=== PATIENT | male | born 1950 | race Caucasian/White ===

== ENCOUNTER 2018-01-13 11:16 | Emergency (ER) | payer MEDICARE, OTHER ==
[2018-01-13] MEDS ORDERED: Sodium Chloride 0.9% 1,000 ML IV ONE (11:57)
[2018-01-13] MEDS ORDERED: HYDROmorphone 2 MG/ML SDV IVPUSH ONE (11:58)
[2018-01-13] MEDS ORDERED: Ondansetron 4 MG/2 ML SDV IVPUSH ONE (11:59)
[2018-01-13] MEDS ORDERED: Iopamidol 755 Mg/ML 75 ML Bottle IV ONE (12:09)
[2018-01-13] MEDS ORDERED: Sodium Chloride 0.9% 10 ML Syringe FLUSH PRN (12:20)
--- NOTE | 2018-01-13 14:14 | CT ---
INDICATION: Sudden onset of severe right lower quadrant abdominal pain without vomiting or diarrhea. CT ABDOMEN AND CT PELVIS WITH CONTRAST: Spiral 2.5 mm axial sections were obtained through the abdomen and pelvis with IV contrast only (75 mL Isovue 370 at 2 mL per second) with sagittal and coronal reconstructions 01/13/2018 - no comparisons were available. Total exam DLP = 552.53 mGy-cm. An active infiltrate or effusion was not identified. The heart appeared normal in size and shape. No gallstones were demonstrated. No significant appearing lesions are noted in the liver, which was not enlarged and appeared normal in density. The spleen and pancreas appear to be normal. The common bile duct was normal in caliber in the head of the pancreas. The adrenal glands appear normal. A tiny cyst is suggested in the anterior cortex - medulla of the lower middle pole anteriorly of the right kidney. On the left, a similar tiny lesion is seen, compatible with a benign cyst in the anterior cortex of the mid pole of the left kidney. In the upper pole of the left kidney, there is a small probable benign cyst measuring approximately 17 mm and an additional larger cyst splaying the renal parenchyma posteriorly, measuring approximately 46 mm. This also has a benign appearance. Three very tiny benign cysts are noted at the lower pole of the left kidney. No evidence of obstructive uropathy was seen on the left. No definite renal calculi were seen. It is difficult to exclude calculi, however, intrarenal on the right, and compared with the left, there is pyelocaliectasis and ureterectasis down to the point where the bilateral total hip arthroplasties produce total annihilation of detail due to hard beam artifact. The possibility of a calculus at the ureterovesical junction cannot be excluded, therefore. The urinary bladder is not adequately visualized, due to the hard beam artifact. The appendix appeared normal and is visualized on axial images #122 through # 126 and coronal images #45 through #55. Evidence of hernia operation for ventral hernia is noted. No recurrent hernia is seen. Fluid filled stomach is noted. This should be correlated clinically. No evidence of a definite bowel obstruction was seen. No free air was identified. Dextroconvex rotoscoliosis of the lumbar spine is noted with dextroconcave scoliosis of the thoracolumbar spine. No additional mass lesions, organomegaly, or free fluid collections were identified in the abdomen or pelvis. IMPRESSION: 1. No evidence of appendicitis. 2. Findings suggest renal calcinosis on the right and obstructive uropathy on the right; however, the distalmost ureter leading to the urinary bladder is not visualized due to rather marked hard beam artifact due to bilateral total hip arthroplasties, making it impossible to exclude ureterovesical junction calculus. This should be correlated clinically, therefore. 3. Scoliosis. 4. Post hernia operation for ventral hernia. 5. Degenerative disk disease lumbar spine. 6. Cystic changes in the kidneys, very minimal on the right, with the largest cyst approximately 46 mm upper pole left kidney, splaying the renal parenchyma. Report was called to Dr. Lemons at 1254 hours on 01/13/2018. [facility]
--- NOTE | 2018-01-18 15:25 | ER ---
DATE SEEN: 01/13/2018 CHIEF COMPLAINT: Abdominal pain, 1-1/2 hours after eating ham and eggs at home. Onset 1030 this morning. HISTORY OF PRESENT ILLNESS: The pain is described as sharp, 10/10, right lower quadrant discomfort. It is new, it has not been present before. No history of vomiting, diarrhea, fever, back pain, or constipation. He takes MiraLax daily and has had a previous history of kidney stones in the past, is not sure if this is a kidney stone pain or not. PAST MEDICAL HISTORY: Hypertension, erectile dysfunction, prostatism, obstruction of the prostate status post previous surgery, right total hip arthroplasties, benign cysts in his kidneys, bilateral total hip arthroplasties, left knee total arthroplasty 05/2018 with resultant stiffness in his legs, previous ventral herniorrhaphy. ALLERGIES: None. REVIEW OF SYSTEMS: HEENT: Negative. CARDIORESPIRATORY: No chest pain. No shortness of breath. MUSCULOSKELETAL: Sense of low back discomfort, stable but resultant discomfort and total left knee and hip arthroplasties with moderately good locomotion. SOCIAL HISTORY: more recently with myocardial infarction. Three daughters, alive and well. The patient smokes a pipe, but does not drink alcohol. Has dyslipidemia. Otherwise, H and P negative except for noted above. Decreased urine output and nocturia noted. Frequent voidings. No prostate surgery. PHYSICAL EXAMINATION: VITAL SIGNS: Blood pressure 157/67, heart rate 64, respirations 20, oxygen saturation 100% on room air, temperature 36.8 degrees Centigrade. His blood pressure did come down on several subsequent measurements, 125/122 on repeat systolic measurements. The diastolic has not changed. GENERAL: Pleasant man, in moderate distress. Presently pain is 6 to 8 out of 10 in intensity. He is afebrile. HEENT: PERRLA intact. Pharynx without abnormality. NECK: Supple. No bruits in neck. LUNGS: Clear without rales, rhonchi, or wheezes. HEART: S1, S2. No irregular rate and rhythm. ABDOMEN: Soft. Mild right flank pain with percussion. LOWER EXTREMITIES: Hips without pain. Good mobility. He has decreased mobility in the left knee. No pedal edema. Extremities are without pain. Deep tendon reflexes hypoactive in upper and lower extremities. NEUROLOGIC: Cranial nerves 2 through 12 intact, oriented x3 and gait is stable. IMAGING DATA: CT of the pelvis demonstrates beam artifact from his bilateral hips, resulting in inability to clearly visualize lower ureters. Unable to see the right ureterovesical junction. There could be a stone. Renal calcinosis noted. A right obstructive uropathy, mild. Mild hydroureter. Scoliosis, ventral hernia surgery, degenerative disk disease, and small cysts in the kidney. ASSESSMENT: Probable renal stone. The patient was given a prescription for pain, to use very carefully. Drink adequate fluids. Follow up with doctor in a week. Flomax 0.4 mg daily. See the doctor early if there is a sign of increase of fever, dehydration, vomiting, or excessive pain. DIAGNOSES: 1. Probable renal stone. 2. Status post bilateral total hip arthroplasty and left knee arthroplasty. 3. Abdominal pain. It does not appear to be secondary to food poisoning, although he had 3 episodes of loose stools. Perhaps, there is mild relation to food poisoning. 4. Prostatism, enlarged prostate, bilateral obstruction, mild. /[id number] JANET/MODL
== END 2018-01-13 13:52 | disposition home or self-care (01) ==
LOC: FB.ED 11:16
DX: R10.31 Right lower quadrant pain (principal); R19.7 Diarrhea, unspecified; N40.1 Benign prostatic hyperplasia with lower urinary tract symptoms; I10 Essential (primary) hypertension; F17.200 Nicotine dependence, unspecified, uncomplicated; Z96.641 Presence of right artificial hip joint; Z96.652 Presence of left artificial knee joint
CPT/HCPCS: 36415; 74177; 80053; 81001; 83605; 85025; 96361; 96374; 96375; 99284; J1170; J2405; J7040; Q9967; J7030